=== PATIENT | male | born 1995 | race Asian ===

== ENCOUNTER 2018-02-01 22:42 | Emergency (ER) | payer OTHER ==
[~2018-02-01] VITALS: Ht 182.9 cm; Wt 70.3 kg
[2018-02-01 22:46] VITALS: Ht 182.9 cm; Wt 70.3 kg
[2018-02-02 00:06] VITALS: BP 156/82
== END 2018-02-02 00:06 | disposition home or self-care (01) ==
LOC: EDBD 22:42 → ED 22:42
DX: S43.004A Unspecified dislocation of right shoulder joint, initial encounter (principal); X58.XXXA Exposure to other specified factors, initial encounter; Y93.89 Activity, other specified; Y92.89 Other specified places as the place of occurrence of the external cause; Y99.8 Other external cause status
CPT/HCPCS: J1885; J2250; J7030; Q0092